=== PATIENT | female | born 1975 | race Caucasian/White ===

== ENCOUNTER 2016-08-20 13:34 | Emergency (ER) | payer OTHER ==
[2016-08-20] MEDS ORDERED: Aspirin Low Dose CHEW TAB* 81 MG PO ONE (15:12)
[2016-08-20 15:57] LABS: Hematocrit 37 % (35-47); Hemoglobin 12.2 g/dl (12.0-16.0); Mean Corpuscular HGB Conc 33 g/dl (31-36); Mean Corpuscular Hemoglobin 29 pg (27-31); Mean Corpuscular Volume 89 fL (80-97); Mean Platelet Volume 9 um3 (7.4-10.4); Red Blood Count 4.19 10^6/ul (4.0-5.4); Red Cell Distribution Width 14 % (10.5-15); White Blood Count 5.9 10^3/ul (3.5-10.8)
[2016-08-20 16:14] LABS: Albumin 4.2 g/dL (3.2-5.2); BUN/Creatinine Ratio 25.3 (8-20); Calcium 9.4 mg/dL (8.6-10.3); EGFR African American 109.5 (>60); EGFR Non-African American 85.2 (>60); Globulin 2.7 g/dL (2-4); Potassium 3.6 mmol/L (3.5-5.0); Total Bilirubin 0.4 mg/dL (0.2-1.0); Total Protein 6.9 g/dL (6.4-8.9)
[2016-08-20 17:00] VITALS: BP 100/53
--- NOTE | 2016-08-20 17:04 | ED ---
Skin Complaint - HPI Summary HPI Summary: Patient presents to ED with CC of diffuse rash over abdomen, arms, and intertriginous thighs. She denies soaps, detergents, lotion changes or new clothes. She denies allergies or environmental changes. Noone else in the house has the symptoms. She denies travel, or sleeping on any other beds or sofas. She states she got a rescue kitten 2 weeks ago but it was UTD on vaccinations and had a first dose of dewormer and flea prevention. She denies any symptoms until 2 days ago. She is also c/o right sided chest pain which is very discrete over the right breast and deep. The pain is not reproducible, began 2 days ago, is not better or worse with exertion and has no associated SOB. Denies diaphoresis or fatigue. Denies personal history of CAD, or family history of such. She has had melanoma several years ago with no return of lesions or other signs. She had followed up with her clinic charge nurse 2 weeks ago with no changes noted. She states the MD gave her a prescription for her face for rosacea, which she believes is metronidazole, but only uses on her face and doubts this could be the cause of her symptoms. - History of Current Complaint Chief Complaint: EDRashSkinAbscess Time Seen by Provider: 08/20/16 14:03 Stated Complaint: RASH,CHEST PAIN SENT FROM CC Hx Obtained From: Patient Hx Last Menstrual Period: 06/14/15 Onset/Duration: Started Days Ago Timing: Constant Onset Severity: Moderate Current Severity: Moderate Pain Intensity: 1 Pain Scale Used: 0-10 Numeric Skin Location: Chest, Arm, Abdomen, Leg Character: Pruritus, Pain, Redness, Raised Aggravating Symptom(s): Nothing Alleviating Symptom(s): Nothing Associated Signs & Symptoms: Chest Pain Related History: Possible Reaction to: Animal - Allergy/Home Medications Allergies/Adverse Reactions: Allergies Allergy/AdvReac Type Severity Reaction Status Date / Time No Known Allergies Allergy Verified 06/27/15 08:55 PMH/Surg Hx/FS Hx/Imm Hx Previously Healthy: Yes - Surgical History Surgery Procedure, Year, and Place: x's 2. Ectopic . Left wrist surgery - Immunization History Hx Pertussis Vaccination: No Immunizations Up to Date: Unable to Obtain/Confirm Infectious Disease History: No Infectious Disease History: Denies: History Other Infectious Disease, Traveled Outside the [place] in Last 30 Days - Family History Known Family History: Positive: None Family History: NON CONTRIBUTORY - Social History Occupation: Employed Full-time Lives: With Family Alcohol Use: Weekly Hx Substance Use: No Substance Use Type: Reports: None Hx Tobacco Use: No Smoking Status (MU): Never Smoked Tobacco Do You Chew or Dip Tobacco: No Review of Systems Constitutional: Negative Eyes: Negative Positive: Chest Pain Respiratory: Negative Gastrointestinal: Negative Positive: no symptoms reported, see HPI Musculoskeletal: Negative Positive: Rash Neurological: Negative Psychological: Normal All Other Systems Reviewed And Are Negative: Yes Physical Exam Triage Information Reviewed: Yes Vital Signs On Initial Exam: Initial Vitals Temp Pulse Resp BP Pulse Ox 98.6 F 88 20 144/73 100 08/20/16 13:41 08/20/16 13:41 08/20/16 13:41 08/20/16 13:41 08/20/16 13:41 Vital Signs Reviewed: Yes Appearance: Positive: Well-Appearing, No Pain Distress Skin: Positive: Warm, Skin Color Reflects Adequate Perfusion, Other - Grouped non-follicular pattern of small erythematous, well-demarcated pruritic papules over lower abdomen, upper chest, right elbow and bilateral intertriginous thighs. Papules are varying in size from 2mm to 5mm diameter. There is no central pustules, drainage or central clearing noted. Papules are non- blanchable and raised. Head/Face: Positive: Normal Head/Face Inspection Eyes: Positive: EOMI, ÓSCAR, Conjunctiva Clear Neck: Positive: Supple, No Lymphadenopathy Respiratory/Lung Sounds: Positive: Clear to Auscultation, Breath Sounds Present , Subcutaneous Emphysema Cardiovascular: Positive: Normal, RRR, Pulses are Symmetrical in both Upper and Lower Extremities Musculoskeletal: Positive: Normal, Strength/ROM Intact Neurological: Positive: Normal, Sensory/Motor Intact, Speech Normal Psychiatric: Positive: Normal AVPU Assessment: Alert - Jose Coma Scale Coma Scale Total: 15 Diagnostics - Vital Signs Vital Signs Temp Pulse Resp BP Pulse Ox 08/20/16 13:43 98.3 F 86 16 144/73 100 08/20/16 13:41 98.6 F 88 20 144/73 100 - Laboratory Lab Results: Lab Results 08/20/16 08/20/16 08/20/16 Range/Units 15:38 15:38 15:38 WBC 5.9 (3.5-10.8) 10^3/ul RBC 4.19 (4.0-5.4) 10^6/ul Hgb 12.2 (12.0-16.0) g/dl Hct 37 (35-47) % MCV 89 (80-97) fL MCH 29 (27-31) pg MCHC 33 (31-36) g/dl RDW 14 (10.5-15) % Plt Count 203 (150-450) 10^3/ul MPV 9 (7.4-10.4) um3 Neut % (Auto) 61.0 (38-83) % Lymph % (Auto) 26.6 (25-47) % [place] % (Auto) 9.8 H (1-9) % Eos % (Auto) 1.8 (0-6) % Baso % (Auto) 0.8 (0-2) % Absolute Neuts (auto) 3.6 (1.5-7.7) 10^3/ul Absolute Lymphs (auto) 1.6 (1.0-4.8) 10^3/ul Absolute Monos (auto) 0.6 (0-0.8) 10^3/ul Absolute Eos (auto) 0.1 (0-0.6) 10^3/ul Absolute Basos (auto) 0 (0-0.2) 10^3/ul Absolute Nucleated RBC 0 10^3/ul Nucleated RBC % 0 INR (Anticoag Therapy) 0.93 (0.89-1.11) D-Dimer, Quantitative < 200 (Less Than 230) ng/mL Sodium 137 (133-145) mmol/L Potassium 3.6 (3.5-5.0) mmol/L Chloride 106 (101-111) mmol/L Carbon Dioxide 26 (22-32) mmol/L Anion Gap 5 (2-11) mmol/L BUN 19 (6-24) mg/dL Creatinine 0.75 (0.51-0.95) mg/dL Est GFR ( Amer) 109.5 (>60) Est GFR (Non-Af Amer) 85.2 (>60) BUN/Creatinine Ratio 25.3 H (8-20) Glucose 104 H (70-100) mg/dL Lactic Acid (0.5-2.0) mmol/L Calcium 9.4 (8.6-10.3) mg/dL Total Bilirubin 0.40 (0.2-1.0) mg/dL AST 13 (13-39) U/L ALT 11 (7-52) U/L Alkaline Phosphatase 64 (34-104) U/L Total Creatine Kinase 71 (10-223) U/L Troponin I 0.00 (<0.04) ng/mL Total Protein 6.9 (6.4-8.9) g/dL Albumin 4.2 (3.2-5.2) g/dL Globulin 2.7 (2-4) g/dL Albumin/Globulin Ratio 1.6 (1-3) 08/20/16 Range/Units 15:38 WBC (3.5-10.8) 10^3/ul RBC (4.0-5.4) 10^6/ul Hgb (12.0-16.0) g/dl Hct (35-47) % MCV (80-97) fL MCH (27-31) pg MCHC (31-36) g/dl RDW (10.5-15) % Plt Count (150-450) 10^3/ul MPV (7.4-10.4) um3 Neut % (Auto) (38-83) % Lymph % (Auto) (25-47) % [place] % (Auto) (1-9) % Eos % (Auto) (0-6) % Baso % (Auto) (0-2) % Absolute Neuts (auto) (1.5-7.7) 10^3/ul Absolute Lymphs (auto) (1.0-4.8) 10^3/ul Absolute Monos (auto) (0-0.8) 10^3/ul Absolute Eos (auto) (0-0.6) 10^3/ul Absolute Basos (auto) (0-0.2) 10^3/ul Absolute Nucleated RBC 10^3/ul Nucleated RBC % INR (Anticoag Therapy) (0.89-1.11) D-Dimer, Quantitative (Less Than 230) ng/mL Sodium (133-145) mmol/L Potassium (3.5-5.0) mmol/L Chloride (101-111) mmol/L Carbon Dioxide (22-32) mmol/L Anion Gap (2-11) mmol/L BUN (6-24) mg/dL Creatinine (0.51-0.95) mg/dL Est GFR ( Amer) (>60) Est GFR (Non-Af Amer) (>60) BUN/Creatinine Ratio (8-20) Glucose (70-100) mg/dL Lactic Acid 1.1 (0.5-2.0) mmol/L Calcium (8.6-10.3) mg/dL Total Bilirubin (0.2-1.0) mg/dL AST (13-39) U/L ALT (7-52) U/L Alkaline Phosphatase (34-104) U/L Total Creatine Kinase (10-223) U/L Troponin I (<0.04) ng/mL Total Protein (6.4-8.9) g/dL Albumin (3.2-5.2) g/dL Globulin (2-4) g/dL Albumin/Globulin Ratio (1-3) Result Diagrams: 08/20/16 15:38 08/20/16 15:38 Lab Statement: Any lab studies that have been ordered have been reviewed, and results considered in the medical decision making process. Course/Dx - Course Course Of Treatment: Patient arrives with CC of rash and chest pain x 2 days. Grouped non-follicular pattern of small erythematous, well-demarcated pruritic papules over lower abdomen, upper chest, right elbow and bilateral intertriginous thighs. Papules are varying in size from 2mm to 5mm diameter. There is no central pustules, drainage or central clearing noted. Papules are non-blanchable and raised. Chest pain is located over right breast in a very discrete location which does not radiate. Pain is not better with rest and is not reproducible. Trop negative. EKG normal. D-dimer negative. Triamcinalone ointment given to patient to reduce swelling and itching symptoms of rash of unknown etiology. Explained to patient she will need to follow up with dermatology this week for a more definitive answer, but likely bug bites/ fleas which will dissipate with appropriate care. Patient is to follow up in 2 days with PCP for chest pain and is to return to ED for any worsening symptoms. - Differential Diagnoses - Skin Complaint Differential Diagnoses: Allergic Reaction, Drug Rash, Other - fleas, bed bugs, tick - Diagnoses Provider Diagnoses: Diffuse papular rash, Chest pain Discharge - Discharge Plan Condition: Stable Disposition: HOME Patient Education Materials: Chest Pain (ED), Insect Bite or Sting (ED) Referrals: Eva Camarillo MD [Primary Care Provider] - Additional Instructions: I am not diagnosing you with fleas, however I wanted to give you information. Please follow up with dermatology as there were no other signs on blood work or tests showing other pathologies. Use the triamcinalone cream to areas which are itchy or painful up to 4 times daily Claritin D12 during the day, Benadryl 25mg at bedtime until symptoms subside Follow up with PCP with chest pain If any of these symptoms get worse, come back to ED immediately. How do you get rid of flea bites? Wash the area of the flea bite with warm soapy water. Apply an antiseptic and an ice pack to reduce the swelling. ... Try calamine lotion or hydrocortisone cream. ... Ask your doctor or pharmacist about antihistamines for severe itching. ... Avoid scratching in and around the affected area.
[2016-08-20] MEDS ORDERED: Triamcinolone 0.5% OINT * 15 GM TUBE TOPICAL SCH (21:00)
== END 2016-08-20 17:07 | disposition home or self-care (01) ==
LOC: ED 13:34
DX: R07.9 Chest pain, unspecified (principal); R21 Rash and other nonspecific skin eruption
CPT/HCPCS: 36415; 80053; 82550; 83605; 84484; 85025; 85379; 85610; 93005; 99284; A9270-GY